=== PATIENT | female | born 1935 | race Caucasian/White ===

== ENCOUNTER 2022-03-05 14:05 | Inpatient (IN) ==
[2022-03-05] MEDS ORDERED: POTASSIUM CHLORIDE 40 MEQ in DEXTROSE 5% IN WATER 500 ML IV PRN (14:08)
[2022-03-05] MEDS ORDERED: ENALAPRILAT 1.25 MG/ML VIAL IV PRN (14:08)
[2022-03-05] MEDS ORDERED: SENNOSIDES 1 TABLET PO PRN (14:08)
[2022-03-05] MEDS ORDERED: POTASSIUM CHLORIDE 20 MEQ TABLET PO PRN ×2 (14:08)
[2022-03-05] MEDS ORDERED: IPRATROPIUM/ALBUTEROL 3 ML AMPUL.NEB NEB PRN ×2 (14:08→18:45)
[2022-03-05] MEDS ORDERED: MAGNESIUM SULFATE 2 GM/50 ML BAG IV PRN (14:08)
[2022-03-05] MEDS ORDERED: POLYETHYLENE GLYCOL 3350 17 GM PACKET PO PRN (14:08)
--- NOTE | 2022-03-05 14:08 | Internal Med History&Physical ---
HPI History of Present Illness Patient information: Note initiated : 03/05/22 at 2:07 pm Service Date, if different from initiated Date: [] Patient: Isabela Cullen a 86 y/o F admitted on for Left hip fracture. Chief Complaint: [] History of present illness: Ms. Cullen is a 86 year old F Presents to the outside facility for left hip pain after fall. Patient states she heard somebody at the door and when she got up to go get the door she tripped over her feet. Gering immediate pain and knew she was unable to get up. Work-up at the outside facility revealed a left hip fracture. Dr. Sarkar was contacted. Patient denies chest pain shortness of breath. Review of Systems: Pertinent positives as above. Denies headache/fever/chills/nausea/vomiting/chest or abdominal pain/cough/dyspnea/diarrhea. Remaining 10 point review system reviewed negative PFSH PFSH All Active Problems Rheumatoid factor positive (Acute) Rotator cuff sprain (Chronic) Leg cramps (Chronic) History of removal of cyst (Chronic) History of bilateral tubal ligation (Chronic) History of surgery (Chronic ~2018) Gluten intolerance (Chronic) Bronchiectasis (Chronic) Swelling (Chronic) Redness (Chronic) Multiple joint pain (Acute) Medical History Bronchiectasis Gluten intolerance Leg cramps Multiple joint pain Hip, shoulder, hand Polymyalgia rheumatica Redness Rheumatoid factor positive Rotator cuff sprain Swelling Surgical History History of bilateral tubal ligation History of removal of cyst Groin area History of surgery (~2018) Skin spot frozen off Family History Other No pertinent family history Social History alcohol intake frequency: 0-2 drinks per day substance use type: does not use MEDS/ALLERGIES Home Medications and Allergies Home Medications Medication Instructions Recorded Confirmed Type prednisone 1 mg tablet 1 mg PO QDAY 09/27/19 11/12/19 History Allergies Allergy/AdvReac Type Severity Reaction Status Date / Time No Known Drug Allergies Allergy Verified 11/12/19 09:58 EXAM Constitutional Exam: General: Alert, Awake, No acute Distress Eyes/N/T: EOMI, PERRL, MM Head/Neck: neck supple, normocephalic atraumatic CV: RRR, No murmurs, normal s1/s2 Pulm: Clear b/l, no wheezing/rhonchi/rales Abd: soft, nontender, +BS x4 Ext: no clubbing/cyanosis/edema Neuro: Alert, no focal deficits, moves all extremities, CN 2-12 grossly intact, sensations intact b/l upper/lower Skin: warm/dry A/P Narrative A/P Narrative: A: *Left hip fracture: *HTN: * P: -Dr. Sarkar for orthopedics -Pain control -PT/OT -check labs -cxr/ua -Continue home ARB -Will medication reconciliation -CM for placement -ppx: SCD and postop per Ortho Time Spent With Patient Time: Total time spent is greater than 50% in coordination of care (as documented) at patient's floor/unit and/or counseling patient: Total time spent with greater than 50% in coordination of care (as documented) at patient's floor/unit and/or counseling patient:: 50 - 70 minutes
--- OUTSIDE RECORDS SUMMARY | 2022-03-05 16:06 | External Medical Summary | CCD ---
:1935 Author Organization [facility] Care Team Providers Name Role Phone Hortencia Mayo Primary Care Provider [phone] Allergies, Adverse Reactions, Alerts Substance Reaction Status No Known Medication Allergies Active Problem List Condition Effective Dates Status Bronchiectasis Active Gluten intolerance Active Polymyalgia rheumatica Active Medications Medication Instructions Start Date End Date Status predniSONE 5 mg oral tablet See Instructions, Instruct ions: Take as directed with prolonged taper, # 100 tab(s), 0 Refill(s), Pharmacy: [facility], Take as directed with prolonged taper 07/27/2019 Ordered Take as directed with prolonged taper predniSONE 1 mg oral tablet See Instructions, Instruct ions: Take as instructed with prolonged taper, # 300 tab(s), 1 Refill(s), Pharmacy: [facility], Take as instructed with prolonged taper 07/27/2019 Ordered Take as instructed with prolonged taper Vital Signs Most recent to oldest [Reference Range]: 1 Temperature Temporal [36.3-37.8 DegC] 36.4 DegC (07/27/2019 09:37:00) Peripheral Pulse Rate [60-100 bpm] 93 bpm (07/27/2019 09:37:00) Respiratory Rate [14-20 br/min] 20 br/min (07/27/2019 09:37:00) Blood Pressure [90-140/60-90 mmHg] <content ID='[id number]'>158</content>/<content ID='[id number]'>95</content> mmHg *HI* (07/27/2019 09:37:00) SpO2 [92-100 %] 93 % (07/27/2019 09:37:00) Most recent to oldest [Reference Range]: 1 Height 162 cm (07/27/2019 09:37:00) Height/Length Measured (inches) 63.78 in (07/27/2019 09:37:00) Weight 50.2 kg (07/27/2019 09:37:00) Weight Measured (lbs) 110.44 lb (07/27/2019 09:37:00) Weight Dosing 50.2 kg (07/27/2019 09:37:00) Body Mass Index 19.13 kg/m2 (07/27/2019 09:37:00) BSA Measured 2 m2 (07/27/2019 09:37:00) Procedures Procedures Date Related Diagnosis Bilateral tubal ligation Cyst In Groin Area Removed Skin spots frozen off 11/02/2017 02:00:00
--- OUTSIDE RECORDS SUMMARY | 2022-03-05 16:06 | External Medical Summary | CCD ---
:1935 Author Organization [facility] Care Team Providers Name Role Phone Hortencia Mayo Primary Care Provider [phone] Ismael Anderson Consulting Provider [phone] Allergies, Adverse Reactions, Alerts Substance Reaction Status No Known Medication Allergies Active Problem List Condition Effective Dates Status Bronchiectasis Active Gluten intolerance Active Polymyalgia rheumatica Active Medications Medication Instructions Start Date End Date Status predniSONE 5 mg oral tablet See Instructions, Instruct ions: Take as directed with prolonged taper, # 100 tab(s), 0 Refill(s), Pharmacy: [facility], Take as directed with prolonged taper 07/27/2019 Ordered Take as directed with prolonged taper predniSONE 1 mg oral tablet See Instructions, Instruct ions: Take as instructed with prolonged taper, # 300 tab(s), 1 Refill(s), Pharmacy: [facility], Take as instructed with prolonged taper 07/27/2019 Ordered Take as instructed with prolonged taper Immunizations Vaccine Date Status Refusal Reason SARS-CoV-2 (COVID-19) mRNA BNT-162b2 vax1 05/14/2020 Record ed SARS-CoV-2 (COVID-19) mRNA BNT-162b2 vax2 04/23/2020 Record ed 1Result Comment: 65+2Result Comment: over 65 Procedures Procedures Date Related Diagnosis Bilateral tubal ligation Skin spots frozen off 11/02/2017 02:00:00 Cyst In Groin Area Removed
--- OUTSIDE RECORDS SUMMARY | 2022-03-05 16:06 | External Medical Summary ---
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, including hip Problem Basal cell C44.310 Active 026779814 carcinoma of skin of unspecified parts of face Problem Skin damage due 692.74 Active to chronic solar radiation Problem Actinic L57.0 Active 072188 keratosis Problem Squamous cell C44.229 Active 836451 000 carcinoma of skin of left ear and external auricular canal Problem Other seborrheic L82.1 Active 254 63825 keratosis ALLERGIES No Known Allergies ENCOUNTERS Encounter Location Date Diagnosis [facility] July, Other se [facility] [place] [address] keratosi s L82.1 and Actinic keratosi s L57.0 [facility] [address] Apr, [address] [place], [place] [id number] [facility] [address] Mar, Ot her seborrheic [address] [place], [place] [id number] keratosi s L82.1 ; Basal cell carcinoma o f skin of unspecified p arts of face C44.310 and Actinic keratosis L57.[address] Mar, 201 [place], [place] [id number] [address] Mar, Other [facility] [place] [facility] [place] [address] keratosi s L82.1 ; Squamous cell ca rcinoma of skin of right lower limb, including hip C44.722 ; Neopla sm of uncertain behavi or of skin D48.5 and A ctinic keratosis L57.[address] Jun, Other [facility] [place] [address] keratosi s L82.1 ; Squamous cell ca rcinoma of skin of left ear and external auricul ar canal C44.229 and Acti renae keratosis L57.[address] Jun, Skin dam age due [place] [address] chronic solar radiation 692.74 ; Seborrh eic Keratosis 702.19 and Actinic keratosi s 702.0 [facility] [address] Jun, Ac tinic keratosis 702.0 [address] [place], [place] [id number] [facility] [address] Jun, Ac tinic keratosis 702.0 [address] [place], [place] [id number] [facility] [address] Jun, Ne oplasm of uncertain [address] [place], [place] [id number] behavior 238.2 [facility] [address] Jun, Ac tinic keratosis 702.0 [address] [place], [place] [id number] and Derm atitis, NOS 692.9 [facility] [address] May, Se borrheic Keratosis [address] [place], [place] [id number] 702.19 a nd Actinic keratosis 702.0 [facility] [address] [facility] May, Ma lignant neoplasm of 201 AILIN Jones [id number] skin of chest 173.5 and Actinic keratosi s 702.0 IMMUNIZATIONS No Known Immunizations SOCIAL HISTORY Never Assessed REASON FOR REFERRAL FUNCTIONAL STATUS PLAN OF CARE Activity Details Follow Up 6 Months Reason: VITAL SIGNS Height 64 in 2011-06-30 Weight 107 lbs 2011-06-30 BMI 18.36 kg/m2 2011-06-30 MEDICATIONS No Known Medications PROCEDURES Procedure Date Ordered Result Body Site BIOPSY OF SKIN LESION June 30, 2011 Post op, no charge Apr 29, 2016 DESTROY LESIONS, 2-May 21, 2009 DESTROY LESIONS, 15 OR MORE July 18, 2013 DESTROY BENIGN/PREMLG LESION May 21, 2009 INTERMED REPAIR FA/EA/EY/NO/LIP/MM <2.5 CM Apr 20, 2016 DESTROY LESIONS, -Apr 20, 2016 DEST MAL LESN TR/EXT 1.1-2.0 CM May 22, 2008 DESTROY LESIONS, 15 OR MORE Mar 24, 2016 DESTRUCTION OF SKIN LESIONS July 02, 2015 DESTROY BENIGN/PREMLG LESION July 02, 2015 DESTROY BENIGN/PREMLG LESION June 26, 2014 BIOPSY OF SKIN LESION Mar 24, 2016 DEST MAL LESN TR/EXT 0.6-1.0 CM Mar 24, 2016 EXC MALIG FA/EA/EY/NO/LIP 0.6-1.0 CM Apr 20, 2016 DESTROY BENIGN/PREMLG LESION July 12, 2012 DESTROY LESIONS, -June 26, 2014 DESTROY BENIGN/PREMLG LESION June 24, 2010 DESTROY LESIONS, 15 OR MORE August 11, 2016 DESTROY BENIGN/PREMLG LESION Apr 20, 2016 DESTROY LESIONS, -July 12, 2012 DESTROY LESIONS, -July 02, 2015 DESTROY LESIONS, 15 OR MORE May 22, 2008 DESTROY LESIONS, -June 24, 2010 RESULTS No Results REASON FOR VISIT skin check , PT WANTS TO MAKE SURE SHE GOT ALL STITCHES OUT , excise bcc midline forehead, Message, SKIN CHECK , SKIN CHECK , SKIN CHECK, SKIN CHECK, skin check , SKIN CHECK , skin check , SKIN CHECK, SKIN CHECK Insurance Providers [facility] Member Patient Patient Patient Patient Patient Subscriber Subscriber Subscriber Group Insurance Plan Plan Plan Plan ID Relationship Address Phone Name Date of ID Name Date of No Type Insurance Insurance Insurance Coverage to Subscriber Address Phone Name Dates [facility] SECURE [address] [facility] SECURE self [place] 19 [id number] [address] [id number] [address] [address] [facility] MED COMP [place] [id number] [place] [id number] MEDICARE [place] [id number] MEDICARE self [place] 1936 [id number] JE [id number] [facility] [address] [facility] Ever [address]87 [facility] Ever self [place] [id number] 11 [id number] [id number] [employer] JOSÉ [facility] EV3 EP6/7 [employer] [facility] [id number]
--- OUTSIDE RECORDS SUMMARY | 2022-03-05 16:06 | External Medical Summary | CCD ---
:1935 Author Organization [facility] Care Team Providers Name Role Phone Hortencia Mayo Primary Care Provider [phone] Ismael Anderson Consulting Provider [phone] Allergies, Adverse Reactions, Alerts Substance Reaction Status No Known Medication Allergies Active Problem List Condition Effective Dates Status Bronchiectasis Active Gluten intolerance Active Polymyalgia rheumatica Active Medications Medication Instructions Start Date End Date Status predniSONE 5 mg oral tablet See Instructions, Instruct ions: Take as directed with prolonged taper, # 100 tab(s), 0 Refill(s), Pharmacy: [facility], Take as directed with prolonged taper 07/27/2019 Ordered Take as directed with prolonged taper predniSONE 1 mg oral tablet See Instructions, Instruct ions: Take as instructed with prolonged taper, # 300 tab(s), 1 Refill(s), Pharmacy: [facility], Take as instructed with prolonged taper 07/27/2019 Ordered Take as instructed with prolonged taper Immunizations Vaccine Date Status Refusal Reason SARS-CoV-2 (COVID-19) mRNA BNT-162b2 vax1 04/23/2020 Record ed 1Result Comment: over 65 Procedures Procedures Date Related Diagnosis Bilateral tubal ligation Cyst In Groin Area Removed Skin spots frozen off 11/02/2017 02:00:00
--- OUTSIDE RECORDS SUMMARY | 2022-03-05 16:06 | External Medical Summary | CCD ---
:1935 Author Organization [facility] Care Team Providers Name Role Phone Hortencia Mayo Primary Care Provider [phone] Ismael Anderson Consulting Provider [phone] Allergies, Adverse Reactions, Alerts Substance Reaction Status No Known Medication Allergies Active Problem List Condition Effective Dates Status Bronchiectasis Active Gluten intolerance Active Polymyalgia rheumatica Active Medications Medication Instructions Start Date End Date Status predniSONE 5 mg oral tablet See Instructions, Instruct ions: Take as directed with prolonged taper, # 100 tab(s), 0 Refill(s), Pharmacy: [facility], Take as directed with prolonged taper 07/27/2019 Ordered Take as directed with prolonged taper predniSONE 1 mg oral tablet See Instructions, Instruct ions: Take as instructed with prolonged taper, # 300 tab(s), 1 Refill(s), Pharmacy: [facility], Take as instructed with prolonged taper [...]
--- OUTSIDE RECORDS SUMMARY | 2022-03-05 16:06 | External Medical Summary | CCD ---
:1935 Author Organization [facility] Care Team Providers Name Role Phone Hortencia Mayo Primary Care Provider [phone] Allergies, Adverse Reactions, Alerts Substance Reaction Status No Known Medication Allergies Active Problem List Condition Effective Dates Status Bronchiectasis Active Gluten intolerance Active Polymyalgia rheumatica Active Medications Medication Instructions Start Date End Date Status losartan 25 mg oral tablet 1 tab(s) ( 25 mg ), PO, 05/26/2020 Ordered Daily, # 30 tab(s), 1 Refill(s), Pharmacy: [facility], 1 tab(s) PO Daily Levaquin 500 mg oral tablet 1 tab(s) ( 500 mg ), PO, 05/26/2020 0 06/05/2020 Ordered q24hr, x 10 day(s), # 10 tab(s), 0 Refill(s), 06/05/20, Pharmacy: [facility], 1 tab(s) PO q24hr,x10 day(s) Immunizations Vaccine Date Status Refusal Reason SARS-CoV-2 (COVID-19) mRNA BNT-162b2 vax1 05/14/2020 Record ed SARS-CoV-2 (COVID-19) mRNA BNT-162b2 vax2 04/23/2020 Record ed 1Result Comment: 65+2Result Comment: over 65 Vital Signs Most recent to oldest [Reference 1 2 Range]: Temperature Temporal [36.3-37.8 36.5 DegC DegC] (05/26/2020 10:52:00) Peripheral Pulse Rate [60-100 86 bpm bpm] (05/26/2020 10:52:00) Blood Pressure [90-140/60-90 <content ID='[id number]'>162</content>/<content ID='[id number]'>93</content> mmHg <content ID='[id number]'>151</desiree nt>/<content ID='[id number]'>89</content> mmHg mmHg] *HI* *HI* (05/26/2020 11:29:00) (05/26/2020 10:52: 00) SpO2 [92-100 %] 97 % (05/26/2020 10:52:00) Most recent to oldest [Reference Range]: 1 2 Height 162 cm (05/26/2020 10:52:00) Height/Length Measured (inches) 63.78 in (05/26/2020 10:52:00) Weight 48.9 kg (05/26/2020 10:52:00) Weight Measured (lbs) 107.58 lb (05/26/2020 10:52:00) Weight Dosing 48.9 kg (05/26/2020 10:52:00) Body Mass Index 18.63 kg/m2 (05/26/2020 10:52:00) BSA Measured 1 m2 (05/26/2020 10:52:00) Procedures Procedures Date Related Diagnosis Bilateral tubal ligation Skin spots frozen off 11/02/2017 02:00:00 Cyst In Groin Area Removed
--- OUTSIDE RECORDS SUMMARY | 2022-03-05 16:06 | External Medical Summary | Continuity of Care Document ---
:1935 Author Organization [facility] Address [address] [place] [address] Care Team Providers Name Role Phone Hortencia Mayo Primary Care Physician Carly Flores Unavailable Unavailable Encounter [facility] Date(s): 06/22/21 - 06/22/21 [facility] [address] [facility] [place] [address]- [place] Discharge Disposition: Home Attending Physician: Hortencia Mayo MD Allergies, Adverse Reactions, Alerts No Known Medication Allergies Immunizations Given and Recorded Vaccine Date Status Refusal Reason SARS-CoV-2 (COVID-19) mRNA-1273 vaccine 06/22/21 Recorded influenza, inactivated 12/26/20 Recorded SARS-CoV-2 (COVID-19) mRNA BNT-162b2 vax 12/26/20 Recorde d SARS-CoV-2 (COVID-19) mRNA BNT-162b2 vax1 05/14/20 Record ed SARS-CoV-2 (COVID-19) mRNA BNT-162b2 vax2 04/23/20 Record ed 1Result Comment: 65+2Result Comment: over 65 Medications losartan 25 mg oral tablet 1 tab(s), PO, Daily, # 30 tab(s), 1 Refill(s), Pharmacy: [facility], TAKE ONE TABLET BYMOUTH DAILY, 48.9, kg, 05/26/20 10:52:00 PST, Weight Dosing Start Date: 01/21/21 Status: Ordered Problem List Condition Effective Dates Status Health Status Informant Bronchiectasis(Confirmed) Active Gluten intolerance(Confirmed) Active Polymyalgia rheumatica(Confirmed) Active Procedures Procedure Date Related Diagnosis Body Site Status Skin spots frozen off 11/02/17 Comple melissa Bilateral tubal ligation Com pleted Cyst In Groin Area Removed C ompleted Social History Social History Type Response Smoking Status Never (less than 100 in life time) entered on: 06/08/19 Sex Care Team PersonnelName: Hortencia Mayo MD Address: [address] [place] [address] [place]: Carly Flores
--- OUTSIDE RECORDS SUMMARY | 2022-03-05 16:06 | External Medical Summary | Continuity of Care Document ---
:1935 Author Organization [facility] Address [address] [place] [address] Care Team Providers Name Role Phone Hortencia Mayo Primary Care Physician Carly Flores Unavailable Unavailable Encounter [facility] Date(s): 01/04/22 - 01/04/22 [facility] [address] [place] [address] [place] Discharge Disposition: Home Attending Physician: DO Cony Reyes Allergies, Adverse Reactions, Alerts No Known Medication Allergies Immunizations Given and Recorded Vaccine Date Status Refusal Reason influenza, inactivated 01/04/22 Recorded influenza, inactivated 12/26/20 Recorded SARS-COV-2 mRNA-1273 bivalent booster 01/04/22 Recorded SARS-CoV-2 (COVID-19) mRNA-1273 vaccine 06/22/21 Recorded SARS-CoV-2 (COVID-19) mRNA BNT-162b2 vax 12/26/20 Recorde d SARS-CoV-2 (COVID-19) mRNA BNT-162b2 vax1 05/14/20 Record ed SARS-CoV-2 (COVID-19) mRNA BNT-162b2 vax2 04/23/20 Record ed 1Result Comment: 65+2Result Comment: over 65 Medications losartan 25 mg oral tablet 1 tab(s), PO, Daily, # 30 tab(s), 1 Refill(s), Pharmacy: [facility], TAKE ONE TABLET BYMOUTH DAILY, 48.9, kg, 05/26/20 10:52:00 PST, Weight Dosing Start Date: 01/21/21 Status: Ordered Problem List Condition Confirmation Course Effective Dates Status Health I nformant Status Bronchiectasis Confirmed Active Gluten intolerance Confirmed Active Polymyalgia Confirmed Active rheumatica Procedures Procedure Date Related Diagnosis Body Site Status Skin spots frozen off 11/02/17 Comple melissa Bilateral tubal ligation Com pleted Cyst In Groin Area Removed C ompleted Social History Social History Type Response Smoking Status Never (less than 100 in life time) entered on: 06/08/19 Sex Patient Care team information PersonnelName: MD Hortencia Mayo Address: Address: [address] [place] [address], [place] [address] [place] Name: Carly Flores
--- NOTE | 2022-03-05 17:32 | XRay Report ---
CLINICAL INFORMATION: Preop COMPARISON: 05/10/2017 TECHNIQUE: Portable FINDINGS: The heart size, mediastinum and pulmonary vessels are unremarkable. Small wedge-shaped region of fibrosis with bronchiectasis, in the right middle lobe, is unchanged 2018. COPD changes also stable. No infiltrates or new pulmonary abnormalities. No effusions. 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 No acute disease Interpreted and Authenticated by: Reagan Vega 03/05/22
[2022-03-05] MEDS ORDERED: ceFAZolin 2 GM in DEXTROSE 5% IN WATER 50 ML IV SCH ×2 (17:45→19:00)
[2022-03-05] MEDS ORDERED: ONDANSETRON 4 MG/2 ML VIAL ONE (17:57)
[2022-03-05] MEDS ORDERED: ePHEDrine 50 MG/5 ML SYRINGE (ANEST) IV ONE (17:57)
[2022-03-05] MEDS ORDERED: MAGNESIUM SULFATE 2 GM/50 ML BAG IV ONE (17:57)
[2022-03-05] MEDS ORDERED: TRANEXAMIC ACID 1,000 MG/10 ML VIAL ONE (17:57)
[2022-03-05] MEDS ORDERED: ACETAMINOPHEN 1,000 MG/100 ML BAG IV ONE ×2 (18:45→19:20)
[2022-03-05] MEDS ORDERED: LACTATED RINGERS 1,000 ML IV SCH (18:45)
[2022-03-05] MEDS ORDERED: NALOXONE HCL 0.4 MG/ML VIAL IV PRN (18:45)
[2022-03-05] MEDS ORDERED: fentaNYL 100 MCG/2 ML VIAL IV PRN (18:45)
[2022-03-05] MEDS ORDERED: BISACODYL 10 MG SUPP.RECT PR PRN (18:50)
--- NOTE | 2022-03-05 18:50 | Brief Operative Note ---
Brief Operative Note Date of procedure: 03/05/22 Pre-op diagnosis: Left closed intertrochanteric hip fracture Post-op diagnosis: same Procedure: Left open treatment internal fixation of intertrochanteric hip fracture w synthes TFNA Grafts/Implants: Yes (Synthes midlength 125 deg TFNA, 95 lag screw) Anesthesia: spinal Findings: comminuted intertroch fracture Complications: none Surgeon: Ernesto Sarkar Diplomatic Officer: Nigel Mclaughlin Estimated blood loss (cc): 150 Specimens Removed/Pathology: none sent Condition: stable Disposition: PACU
--- NOTE | 2022-03-05 19:54 | History and Physical Report ---
DATE OF ADMISSION: 03/05/2022 CHIEF COMPLAINT: Left hip pain. HISTORY: This is an 86-year-old female who lives alone, recently about a week ago, who heard somebody at the door and she got up to see who it was and tripped, had fallen down, and had severe pain in her left hip. She is unable to bear weight. She was taken to the local emergency room in [facility]. X-rays were taken, which showed a comminuted intratrochanteric hip fracture. She was transferred down here for definitive orthopedic care. She denies any loss of consciousness or other injuries. PAST MEDICAL HISTORY: Reportedly for hypertension, although she states currently she does not have hypertension. Also history of TIAs and polymyalgia rheumatica. PAST SURGICAL HISTORY: Tubal ligation and cyst removal. MEDICATIONS: ____ prescription medications at this time. ALLERGIES: No known drug allergies. SOCIAL HISTORY: She drinks limited alcohol. No tobacco use. Again she is recently . PHYSICAL EXAMINATION: VITAL SIGNS: Today at presentation her blood pressure is 156/88, pulse 93, respirations 16, and temperature 97.5. GENERAL APPEARANCE: She appears her stated age, in no acute distress. She is oriented to person and place. Mood is somewhat depressed, almost tearful. HEART: Regular. LUNGS: Clear. EXTREMITIES: Left lower extremities reveals significant shortening in external rotation. Skin is intact as she has very limited motion secondary to severe pain. Fractures is grossly unstable. NEUROLOGIC: She is neurovascularly intact distally. DIAGNOSTIC STUDIES: X-rays reviewed from [facility] shows a comminuted left intratrochanteric hip fracture that appears to start to extend into the upper subtrochanteric region. IMPRESSION: Left closed intratrochanteric hip fracture in an 86-year-old female, who is previously ambulatory and independent. PLAN: I recommend proceeding with open treatment and internal fixation of the left intertrochanteric hip fracture. Risks of surgery discussed include, but not limited to bleeding; infection; injuring nerves, blood vessels or other surrounding structures; anesthetic risks; nonunion and malunion of fracture; failure of hardware or fixation; possibility of needing further surgery, she understood and wished to proceed. She has been n.p.o. since 09:30 this morning, so we are going to proceed right away. [email or web address]:[id number] Job ID: [id number] Doc ID: [id number] Ernesto Sarkar MD
[2022-03-05] MEDS: DOCUSATE SODIUM 100 MG CAPSULE PO SCH (22:14)
[2022-03-05] MEDS: 0.9 % SODIUM CHLORIDE 10 ML SYRINGE IV SCH (22:14)
[2022-03-06] MEDS: ceFAZolin 1 GM VIAL IV SCH ×2 (01:28→10:48)
[2022-03-06] MEDS: 0.9 % SODIUM CHLORIDE 10 ML SYRINGE IV SCH ×4 (04:46→21:06)
[2022-03-06 05:01] LABS: Appearance,Urine HAZY (Clear); Bilirubin,Urine Negative (Negative); Color,Urine YELLOW; Culture Indicated,Urine No; Glucose,Urine (UA) >=500 mg/dL (Negative); Ketones,Urine Negative (Negative); Leukocyte Esterase,Urine Negative /uL (Negative); Mucus,Urine MOD /hpf; Nitrate,Urine Negative (Negative); Protein,Urine Negative (Negative); Specific Gravity,Urine 1.021 (1.000-1.035); Urine Blood 0.03 mg/dL (Negative); Urine Hyaline Cast 104 /lph (0-2); Urine RBC 4 /hpf (0-3); Urine Squamous Epithelial Cell < 1 /hpf (0-4); Urine Transitional Epi Cells < 1 /hpf (0-2); Urine WBC 2 /hpf (0-4); Urobilinogen,Urine Negative
--- NOTE | 2022-03-06 06:26 | XRay Report ---
CLINICAL INFORMATION: ORIF subtrochanteric fracture left hip COMPARISON: None. FINDINGS: A digital images from the OR show comminuted oblique subtrochanteric fracture reduced to anatomic alignment transfixed by gamma nail and screw. Total fluoroscopy time 0.5 minutes IMPRESSION: ORIF proximal diaphyseal femoral fracture in anatomic alignment. Total fluoroscopy time 0.5 minutes Interpreted and Authenticated by: Reagan Vega 03/06/22
--- NOTE | 2022-03-06 07:42 | Internal Med Progress Note ---
SUBJECTIVE Subjective Patient information: Note initiated : 03/06/22 at 7:38 am Service Date, if different from initiated Date: [] Patient: Isabela Cullen a 86 y/o F admitted on 03/05/22 for Left hip fracture. Chief Complaint: [] Interval history: History of present illness: Ms. Cullen is a 86 year old F Presents to the outside facility for left hip pain after fall. Patient states she heard somebody at the door and when she got up to go get the door she tripped over her feet. [place] immediate pain and knew she was unable to get up. Work-up at the outside facility revealed a left hip fracture. Dr. Sarkar was contacted. Patient denies chest pain shortness of breath. 03/06 Status post ORIF. Patient feeling okay. No overnight or new complaints other than poor sleep. Leukocytosis likely reactive. Afebrile. Monitor. Mild hyponatremia monitor. Review of Systems: denies headache/fever/chills/nausea/vomiting/chest or abdominal p ain/cough/dyspnea/diarrhea. Otherwise see above. Constitutional Vitals: Vital Signs Temp Pulse Resp BP Pulse Ox O2 Del Method O2 Flow Rate 98.9 F 83 16 128/73 92 2 03/06/22 04:43 03/06/22 04:43 03/06/22 04:43 03/06/22 04:43 03/06/22 04:43 03/06/22 04:43 03/06/22 04:43 Period Temp Pulse Resp BP Sys/Contreras Pulse Ox O2 Del Method O2 Flow Rate Last 24 Hr 97.2 F-98.9 F 50-99 14-25 93-156/62-88 90-98 Nasal Cannula- Nasal Cannula 1-2 Intake and Output 03/05/22 03/06/22 03/06/22 19:59 03:59 11:59 Intake Total 500 100 840 Output Total 360 Balance 500 100 480 Weight 43.091 kg 45.444 kg Intake & Output: Intake & Output 03/05/22 03/06/22 03/06/22 19:59 03:59 11:59 Intake Total 500 100 840 Output Total 360 Balance 500 100 480 Weight 43.091 kg 45.444 kg Intake: IV 50 100 Ancef 2 gm In Dextrose 5% in 50 Water 50 ml @ 100 mls/hr IV PREOP MICHEL Rx#:[id number] Oral 840 IV - Manual Only 450 Output: Urine Catheter Amount 360 Other: Urine Appearance Uretheral (Howard) Cloudy Clear Urine Color Uretheral (Howard) Yellow Yellow Exam: General: Alert, Awake, No acute Distress Eyes/N/T: EOMI, Head/Neck: neck supple, CV: RRR, No murmurs, Pulm: mild rales b/l, no wheezing Abd: soft, nontender, +BS x4 Ext: no clubbing/cyanosis/edema Neuro: Alert, no focal deficits, moves all extremities, Skin: warm/dry OBJ DATA Labs CBC & Chem 7: 03/06/22 06:06 03/06/22 06:08 Labs: Abnormal Lab Results 03/06/22 01:43 Urine Appearance Hazy A Urine Glucose (UA) >=500 A Urine RBC 4 H Hyaline Casts 104 H Urine Mucus Mod A Meds: Medications Acetaminophen (Acetaminophen 325 Mg Tablet) 650 mg PO Q6HP PRN; Protocol PRN Reason: Per Pain Protocol/Fever > 101 Hydrocodone Bitart/Acetaminophen (Hydrocodone/Apap 5/325mg Tablet) 1 tab PO Q4HP PRN PRN Reason: PAIN LEVEL 3-6 Albuterol/Ipratropium (Ipratropium/Albuterol 3 Ml Ampul.Neb) 3 ml NEB Q4HP PRN PRN Reason: Shortness Of Breath Bisacodyl (Bisacodyl 10 Mg Supp.Rect) 10 mg ND Q2-3DAYS PRN PRN Reason: Constipation Cefazolin Sodium (Cefazolin 1 Gm Vial) 2 gm IV Q8H [facility] Stop: 03/06/22 10:01 Last Admin: 03/06/22 01:28 Dose: 2 gm Docusate Sodium (Docusate Sodium 100 Mg Capsule) 100 mg PO BID [facility] Last Admin: 03/05/22 22:14 Dose: 100 mg Enalaprilat (Enalaprilat 1.25 Mg/Ml Vial) 0 mg IV Q2HP PRN PRN Reason: Hypertension Heparin Sodium (Porcine) (Heparin 5,000 Unit/Ml Vial) 5,000 unit SQ Q12 [facility] Potassium Chloride 40 meq/ (Dextrose) 520 mls @ 130 mls/hr IV UD PRN PRN Reason: Potassium < 3 Magnesium Sulfate (Magnesium Sulfate) 2 gm in 50 mls @ 50 mls/hr IV UD PRN PRN Reason: Magnesium </= 1.6 Morphine Sulfate (Morphine 4 Mg/Ml Vial) 0 mg IV Q3HP PRN PRN Reason: Pain Ondansetron HCl (Ondansetron 4 Mg/2 Ml Vial) 4 mg IV Q4HP PRN PRN Reason: Nausea And Vomiting Polyethylene Glycol (Polyethylene Glycol 3350 17 Gm Packet) 17 gm PO DAILYP PRN PRN Reason: Constipation Potassium Chloride (Potassium Chloride 20 Meq Tablet) 40 meq PO UD PRN PRN Reason: Potssium is 3-3.5 Potassium Chloride (Potassium Chloride 20 Meq Tablet) 40 meq PO UD PRN PRN Reason: Potassium < 3 Senna (Sennosides 1 Tablet) 2 tab PO DAILYP PRN PRN Reason: Constipation Sodium Chloride (0.9 % Sodium Chloride 10 Ml Syringe) 10 ml IV Q8 [facility] Last Admin: 03/06/22 04:46 Dose: 10 ml A/P Narrative A/P Narrative: A: *Left hip fracture: s/p ORIF (03/05) *HTN: *COPD: based on history and imaging *leukocytosis: ?reactive, monitor *Hyponatremia: *hypoxia: obtain cxr P: -Dr. Sarkar for orthopedics -Pain control -PT/OT -f/u check labs -ivf f/u sodium -f/u cbc -Continue home ARB -Home medication reconciliation -CM for placement -ppx: SCD and postop per Ortho heparin DNR Time Spent With Patient Time: Total time spent is greater than 50% in coordination of care (as documented) at patient's floor/unit and/or counseling patient: Total time spent with greater than 50% in coordination of care (as documented) at patient's floor/unit and/or counseling patient:: 35 - 50 minutes QUALITY VTE Deep Vein Thrombosis/Pulmonary Embolism Present on Admission: No
[2022-03-06 07:44] LABS: Basophils # (Auto) 0.03 K/mcL (0.00-0.30); Basophils % (Auto) 0.2 % (0.0-2.0); Eosinophils # (Auto) 0 K/mcL (0.00-0.70); Eosinophils % (Auto) 0 % (0.0-7.0); Hematocrit 33.8 % (34.1-44.9); Hemoglobin 11.1 g/dL (11.2-15.7); Lymphocytes % (Auto) 5.9 % (15.5-49.0); Mean Cell Volume 90.1 fL (80.0-100.0); Mean Corpuscular HGB Conc 32.8 g/dL (31.0-36.0); Mean Platelet Volume 9.2 fL (8.8-12.5); Monocytes # (Auto) 0.97 K/mcL (0.10-0.90); Monocytes % (Auto) 5.2 % (1.0-12.0); Neutrophils % (Auto) 88.2 % (38.0-78.0); Platelet Count 197 K/mcL (140-440); RBC 3.75 M/mcL (3.59-5.38); Red Cell Distribution Width 13.6 % (11.5-14.5); WBC 18.8 K/mcL (4.5-11.0)
[2022-03-06 07:53] LABS: INR 1.1 (0.9-1.1); Prothrombin Time 14.7 sec (11.9-14.5)
[2022-03-06 08:09] LABS: ALT/SGPT 14 U/L (<40); AST/SGOT 24 U/L (<32); Albumin 3.5 gm/dL (3.2-5.2); Albumin/Globulin Ratio 1.6 (1.0-2.3); Alkaline Phosphatase 76 U/L (39-117); Bilirubin,Direct < 0.2 mg/dL (0-0.3); Bilirubin,Total 0.3 mg/dL (0.1-1.0); Blood Urea Nitrogen 17 mg/dL (8-23); Calcium 8.7 mg/dL (8.6-10.4); Carbon Dioxide 30 mmol/L (22-30); Chloride 96 mmol/L (96-108); Globulin 2.2 gm/dL (2.2-3.7); Glomerular Filtration Rate 67; Glucose 179 mg/dL (70-105); Lactate Dehydrogenase 242 U/L (135-225); Phosphorous 3.3 mg/dL (2.5-4.5); Triglycerides 49 mg/dL (<150); Uric Acid 3.8 mg/dL (2.5-8.0)
[2022-03-06] MEDS ORDERED: 0.9 % SODIUM CHLORIDE 500 ML IV ONE (08:46)
[2022-03-06] MEDS: DOCUSATE SODIUM 100 MG CAPSULE PO SCH ×2 (08:59→19:42)
[2022-03-06] MEDS: ACETAMINOPHEN 325 MG TABLET PO PRN ×2 (08:59→16:36)
[2022-03-06] MEDS ORDERED: diphenhydrAMINE 25 MG CAPSULE PO PRN (09:16)
--- NOTE | 2022-03-06 10:08 | Orthopedic Progress Note ---
SUBJECTIVE Subjective Patient information: Note initiated : 03/06/22 at 10:04 am Service Date, if different from initiated Date: [] Patient: Isabela Cullen 86 y/o F admitted on 03/05/22 for Left hip fracture. Chief Complaint: Mild pain. Principal diagnosis: L hip IT fx Constitutional Vitals: Vital Signs Temp Pulse Resp BP Pulse Ox O2 Del Method O2 Flow Rate 98.1 F 83 20 119/70 91 2 03/06/22 07:49 03/06/22 04:43 03/06/22 07:49 03/06/22 07:49 03/06/22 07:49 03/06/22 07:49 03/06/22 07:49 Period Temp Pulse Resp BP Sys/Contreras Pulse Ox O2 Del Method O2 Flow Rate Last 24 Hr 97.2 F-98.9 F 50-99 14-25 93-156/62-88 90-98 Nasal Cannula- Nasal Cannula 1-2 Intake and Output 03/05/22 03/06/22 03/06/22 19:59 03:59 11:59 Intake Total 497 063 0859 Output Total 360 Balance 500 100 960 Weight 95 lb 100 lb 3 oz Intake & Output: Intake & Output 03/05/22 03/06/22 03/06/22 19:59 03:59 11:59 Intake Total 488 133 5804 Output Total 360 Balance 500 100 960 Weight 95 lb 100 lb 3 oz Intake: IV 50 100 Ancef 2 gm In Dextrose 5% in 50 Water 50 ml @ 100 mls/hr IV PREOP MICHEL Rx#:[id number] Oral 1320 IV - Manual Only 450 Output: Urine Catheter Amount 360 Other: Meal Breakfast Percent of Meal Consumed 100% Feeding Ability Independent Urine Appearance Uretheral (Howard) Cloudy Clear Urine Color Uretheral (Howard) Yellow Yellow Additional findings Additional findings: Bandages c/d/i NVI-distal OBJ DATA Labs CBC & Chem 7: 03/06/22 06:06 03/06/22 06:08 Labs: Abnormal Lab Results 03/06/22 03/06/22 03/06/22 06:08 06:06 06:03 WBC 18.8 H Hgb 11.1 L Hct 33.8 L Neut % (Auto) 88.2 H Lymph % (Auto) 5.9 L Lymph # (Auto) 1.10 L Edgar # (Auto) 0.97 H Immature Gran # 0.10 H Absolute Neutrophils 16.56 H PT 14.7 H Sodium 132 L Anion Gap 6.0 L Glucose 179 H Lactate Dehydrogenase 242 H Total Protein 5.7 L Urine Appearance Urine Glucose (UA) Urine RBC Hyaline Casts Urine Mucus 03/06/22 01:43 WBC Hgb Hct Neut % (Auto) Lymph % (Auto) Lymph # (Auto) Edgar # (Auto) Immature Gran # Absolute Neutrophils PT Sodium Anion Gap Glucose Lactate Dehydrogenase Total Protein Urine Appearance Hazy A Urine Glucose (UA) >=500 A Urine RBC 4 H Hyaline Casts 104 H Urine Mucus Mod A Meds: Medications Acetaminophen (Acetaminophen 325 Mg Tablet) 650 mg PO Q6HP PRN; Protocol PRN Reason: Per Pain Protocol/Fever > 101 Last Admin: 03/06/22 08:59 Dose: 650 mg Hydrocodone Bitart/Acetaminophen (Hydrocodone/Apap 5/325mg Tablet) 1 tab PO Q4HP PRN PRN Reason: PAIN LEVEL 3-6 Albuterol/Ipratropium (Ipratropium/Albuterol 3 Ml Ampul.Neb) 3 ml NEB Q4HP PRN PRN Reason: Shortness Of Breath Bisacodyl (Bisacodyl 10 Mg Supp.Rect) 10 mg CA Q2-3DAYS PRN PRN Reason: Constipation Diphenhydramine HCl (Diphenhydramine 25 Mg Capsule) 25 mg PO HSP PRN PRN Reason: Insomnia Docusate Sodium (Docusate Sodium 100 Mg Capsule) 100 mg PO BID MICHEL Last Admin: 03/06/22 08:59 Dose: 100 mg Enalaprilat (Enalaprilat 1.25 Mg/Ml Vial) 0 mg IV Q2HP PRN PRN Reason: Hypertension Heparin Sodium (Porcine) (Heparin 5,000 Unit/Ml Vial) 5,000 unit SQ Q12 [facility] Potassium Chloride 40 meq/ (Dextrose) 520 mls @ 130 mls/hr IV UD PRN PRN Reason: Potassium < 3 Magnesium Sulfate (Magnesium Sulfate) 2 gm in 50 mls @ 50 mls/hr IV UD PRN PRN Reason: Magnesium </= 1.6 Sodium Chloride (Sodium Chloride 0.9%) 500 mls @ 60 mls/hr IV .Q8H20M ONE Stop: 03/06/22 17:05 Melatonin (Melatonin 3 Mg Tablet) 3 mg PO QHS [facility] Morphine Sulfate (Morphine 4 Mg/Ml Vial) 0 mg IV Q3HP PRN PRN Reason: Pain Ondansetron HCl (Ondansetron 4 Mg/2 Ml Vial) 4 mg IV Q4HP PRN PRN Reason: Nausea And Vomiting Polyethylene Glycol (Polyethylene Glycol 3350 17 Gm Packet) 17 gm PO DAILYP PRN PRN Reason: Constipation Potassium Chloride (Potassium Chloride 20 Meq Tablet) 40 meq PO UD PRN PRN Reason: Potssium is 3-3.5 Potassium Chloride (Potassium Chloride 20 Meq Tablet) 40 meq PO UD PRN PRN Reason: Potassium < 3 Senna (Sennosides 1 Tablet) 2 tab PO DAILYP PRN PRN Reason: Constipation Sodium Chloride (0.9 % Sodium Chloride 10 Ml Syringe) 10 ml IV Q8 [facility] Last Admin: 03/06/22 04:46 Dose: 10 ml A/P Assessment and plan (1) Hip fracture, intertrochanteric: Assessment and plan: 1 days s/p L hip IT fx with IM nail-stable mobilize with PT f/u at [facility] in 6 weeks. [place] out in 2 weeks with PCP or at rehab facility. Status: Acute Time Spent With Patient Time: Total time spent is greater than 50% in coordination of care (as documented) at patient's floor/unit and/or counseling patient: Total time spent with greater than 50% in coordination of care (as documented) at patient's floor/unit and/or counseling patient:: less than 15 minutes
--- NOTE | 2022-03-06 10:49 | XRay Report ---
CLINICAL INFORMATION: Hypoxia COMPARISON: 05/10/2017 and 03/05/2022 TECHNIQUE: Portable FINDINGS: The heart size, mediastinum and pulmonary vessels are unremarkable. Small wedge-shaped region of fibrosis with bronchiectasis, in the right middle lobe, is unchanged since 2018. COPD changes also stable. No infiltrates or new pulmonary abnormalities. No effusions. 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 No acute disease Interpreted and Authenticated by: Reagan Vega 03/06/22
[2022-03-06] MEDS: HYDROcodone/APAP 5/325MG TABLET PO PRN (19:41)
[2022-03-06] MEDS: HEPARIN 5,000 UNIT/ML VIAL SQ SCH (19:42)
[2022-03-06] MEDS: MELATONIN 3 MG TABLET PO SCH (19:42)
[2022-03-07] MEDS: 0.9 % SODIUM CHLORIDE 10 ML SYRINGE IV SCH ×3 (05:06→20:59)
[2022-03-07 06:50] LABS: Hemoglobin 10.3 g/dL (11.2-15.7); Mean Cell Volume 90.1 fL (80.0-100.0); Mean Corpuscular HGB Conc 33.2 g/dL (31.0-36.0); Mean Platelet Volume 9.4 fL (8.8-12.5); Platelet Count 155 K/mcL (140-440); RBC 3.44 M/mcL (3.59-5.38); Red Cell Distribution Width 13.9 % (11.5-14.5); WBC 14.7 K/mcL (4.5-11.0)
[2022-03-07 07:18] LABS: Blood Urea Nitrogen 24 mg/dL (8-23); Carbon Dioxide 31 mmol/L (22-30); Chloride 90 mmol/L (96-108); Glomerular Filtration Rate 83; Glucose 91 mg/dL (70-105)
[2022-03-07 07:45] LABS: Band Neutrophils % 2 % (0-10); Lymphocytes % 12 % (15-49); Monocytes % (Manual) 5 % (1-12); Platelet Estimate NORMAL (Normal); RBC Morphology NORMAL (Normal); Segmented Neutrophils % 81 % (38-78)
--- NOTE | 2022-03-07 07:51 | Internal Med Progress Note ---
SUBJECTIVE Subjective Patient information: Note initiated : 03/07/22 at 7:45 am Service Date, if different from initiated Date: [] Patient: Isabela Cullen a 86 y/o F admitted on 03/05/22 for Left hip fracture. Chief Complaint: [] Principal diagnosis: L hip IT fx Interval history: History of present illness: Ms. Cullen is a 86 year old F Presents to the outside facility for left hip pain after fall. Patient states she heard somebody at the door and when she got up to go get the door she tripped over her feet. [place] immediate pain and knew she was unable to get up. Work-up at the outside facility revealed a left hip fracture. Dr. Sarkar was contacted. Patient denies chest pain shortness of breath. 03/06 Status post ORIF. Patient feeling okay. No overnight or new complaints other than poor sleep. Leukocytosis likely reactive. Afebrile. Monitor. Mild hyponatremia monitor. 03/07 Patient comfortable this morning. No overnight events. Leukocytosis present but improving. no Bandemia. Sodium decreased. Awaiting urine studies. Review of Systems: denies headache/fever/chills/nausea/vomiting/chest or abdominal pain/cough/dyspnea/diarrhea. Otherwise see above. Constitutional Vitals: Vital Signs Temp Pulse Resp BP Pulse Ox O2 Del Method O2 Flow Rate 97.7 F 82 16 139/79 91 0.5 03/07/22 03:21 03/07/22 03:21 03/07/22 03:21 03/07/22 03:21 03/07/22 06:05 03/07/22 06:05 03/07/22 06:02 Period Temp Pulse Resp BP Sys/Contreras Pulse Ox O2 Del Method O2 Flow Rate Last 24 Hr 97 F-98.8 F 82-85 16-20 118-160/65-85 91-98 Nasal Cannula-Room Air 0.5-3 Intake and Output 03/06/22 03/07/22 03/07/22 19:59 03:59 11:59 Intake Total 1017 400 Output Total 225 450 Balance 792 -50 Weight 43.715 kg Intake & Output: Intake & Output 03/06/22 03/07/22 03/07/22 19:59 03:59 11:59 Intake Total 1017 400 Output Total 225 450 Balance 792 -50 Weight 43.715 kg Intake: IV 317 Sodium Chloride 0.9% 500 ml @ 317 60 mls/hr IV .Q8H20M ONE Rx#: [id number] Oral 700 400 Output: Urine Catheter Amount 225 Void Amount 450 Other: Urine Appearance Clear Clear Uretheral (Howard) Clear Urine Color Yellow Dark Yazmin Uretheral (Howard) Yellow Urine Odor Strong Strong Exam: General: Alert, Awake, No acute Distress Eyes/N/T: EOMI, Head/Neck: neck supple, CV: RRR, No murmurs, Pulm: mild rales b/l, no wheezing Abd: soft, nontender, +BS x4 Ext: no clubbing/cyanosis/edema Neuro: Alert, no focal deficits, moves all extremities, Skin: warm/dry OBJ DATA Labs CBC & Chem 7: 03/07/22 05:38 03/07/22 05:38 Labs: Abnormal Lab Results 03/07/22 03/07/22 03/06/22 05:38 05:38 06:08 WBC 14.7 H RBC 3.44 L Hgb 10.3 L Hct 31.0 L Neut % (Auto) Lymph % (Auto) Lymph # (Auto) Carter # (Auto) Immature Gran # Absolute Neutrophils PT Sodium 126 L 132 L Chloride 90 L Carbon Dioxide 31 H Anion Gap 5.0 L 6.0 L BUN 24 H Glucose 179 H Calcium 8.0 L Lactate Dehydrogenase 242 H Total Protein 5.7 L Urine Appearance Urine Glucose (UA) Urine RBC Hyaline Casts Urine Mucus 03/06/22 03/06/22 03/06/22 06:06 06:03 01:43 WBC 18.8 H RBC Hgb 11.1 L Hct 33.8 L Neut % (Auto) 88.2 H Lymph % (Auto) 5.9 L Lymph # (Auto) 1.10 L Carter # (Auto) 0.97 H Immature Gran # 0.10 H Absolute Neutrophils 16.56 H PT 14.7 H Sodium Chloride Carbon Dioxide Anion Gap BUN Glucose Calcium Lactate Dehydrogenase Total Protein Urine Appearance Hazy A Urine Glucose (UA) >=500 A Urine RBC 4 H Hyaline Casts 104 H Urine Mucus Mod A Meds: Medications Acetaminophen (Acetaminophen 325 Mg Tablet) 650 mg PO Q6HP PRN; Protocol PRN Reason: Per Pain Protocol/Fever > 101 Last Admin: 03/06/22 16:36 Dose: 650 mg Hydrocodone Bitart/Acetaminophen (Hydrocodone/Apap 5/325mg Tablet) 1 tab PO Q4HP PRN PRN Reason: PAIN LEVEL 3-6 Last Admin: 03/06/22 19:41 Dose: 1 tab Albuterol/Ipratropium (Ipratropium/Albuterol 3 Ml Ampul.Neb) 3 ml NEB Q4HP PRN PRN Reason: Shortness Of Breath Bisacodyl (Bisacodyl 10 Mg Supp.Rect) 10 mg DE Q2-3DAYS PRN PRN Reason: Constipation Diphenhydramine HCl (Diphenhydramine 25 Mg Capsule) 25 mg PO HSP PRN PRN Reason: Insomnia Docusate Sodium (Docusate Sodium 100 Mg Capsule) 100 mg PO BID [facility] Last Admin: 03/06/22 19:42 Dose: 100 mg Enalaprilat (Enalaprilat 1.25 Mg/Ml Vial) 0 mg IV Q2HP PRN PRN Reason: Hypertension Heparin Sodium (Porcine) (Heparin 5,000 Unit/Ml Vial) 5,000 unit SQ Q12 [facility] Last Admin: 03/06/22 19:42 Dose: 5,000 unit Potassium Chloride 40 meq/ (Dextrose) 520 mls @ 130 mls/hr IV UD PRN PRN Reason: Potassium < 3 Magnesium Sulfate (Magnesium Sulfate) 2 gm in 50 mls @ 50 mls/hr IV UD PRN PRN Reason: Magnesium </= 1.6 Melatonin (Melatonin 3 Mg Tablet) 3 mg PO QHS [facility] Last Admin: 03/06/22 19:42 Dose: 3 mg Morphine Sulfate (Morphine 4 Mg/Ml Vial) 0 mg IV Q3HP PRN PRN Reason: Pain Ondansetron HCl (Ondansetron 4 Mg/2 Ml Vial) 4 mg IV Q4HP PRN PRN Reason: Nausea And Vomiting Polyethylene Glycol (Polyethylene Glycol 3350 17 Gm Packet) 17 gm PO DAILYP PRN PRN Reason: Constipation Potassium Chloride (Potassium Chloride 20 Meq Tablet) 40 meq PO UD PRN PRN Reason: Potssium is 3-3.5 Potassium Chloride (Potassium Chloride 20 Meq Tablet) 40 meq PO UD PRN PRN Reason: Potassium < 3 Senna (Sennosides 1 Tablet) 2 tab PO DAILYP PRN PRN Reason: Constipation Sodium Chloride (0.9 % Sodium Chloride 10 Ml Syringe) 10 ml IV Q8 [facility] Last Admin: 03/07/22 05:06 Dose: 10 ml A/P Narrative A/P Narrative: A: *Left hip fracture: s/p ORIF (03/05) *HTN: *COPD: based on history and imaging *leukocytosis: likely reactive, improving, monitor.no bandemia, ua/cxr unremarkable, afebrile *Hyponatremia: worse, *Anemia: *Acute hypoxic respiratory failure: 0-1L NC 2/2 likely atelectasis + bronchiectasis plus underlying copd P: -Dr. Sarkar for orthopedics -Pain control -PT/OT -f/u cbc/chem -f/u sodium, urine studies -f/u cbc -IS/Acapella, wean off o2 -Continue home ARB -Home medication reconciliation -CM for placement -ppx: SCD and postop per Ortho heparin DNR Plan of Treatment: mobilize with PT Switch pain med to Tramadol from [place]. f/u at [facility] in 2 or 6 weeks. Pt does not wish to travel for 2 week appt. [place] out at 2 weeks with PCP or nursing facility. 50% weight bearing. Signing out Ortho service. Time Spent With Patient Time: Total time spent is greater than 50% in coordination of care (as documented) at patient's floor/unit and/or counseling patient: Total time spent with greater than 50% in coordination of care (as documented) at patient's floor/unit and/or counseling patient:: 35 - 50 minutes QUALITY VTE Deep Vein Thrombosis/Pulmonary Embolism Present on Admission: No
[2022-03-07] MEDS: DOCUSATE SODIUM 100 MG CAPSULE PO SCH ×2 (08:13→20:57)
[2022-03-07] MEDS: HEPARIN 5,000 UNIT/ML VIAL SQ SCH ×2 (08:13→20:58)
[2022-03-07] MEDS: ACETAMINOPHEN 325 MG TABLET PO PRN (08:13)
[2022-03-07 08:18] LABS: Uric Acid 3.4 mg/dL (2.5-8.0)
--- NOTE | 2022-03-07 09:24 | Orthopedic Progress Note ---
SUBJECTIVE Subjective Patient information: Note initiated : 03/07/22 at 9:21 am Service Date, if different from initiated Date: [] Patient: Isabela Cullen 86 y/o F admitted on 03/05/22 for Left hip fracture. Chief Complaint: Mild to moderate pain, particularly with movement. Principal diagnosis: L hip IT fx Constitutional Vitals: Vital Signs Temp Pulse Resp BP Pulse Ox O2 Del Method O2 Flow Rate 97.7 F 82 16 139/79 91 0.5 03/07/22 03:21 03/07/22 03:21 03/07/22 03:21 03/07/22 03:21 03/07/22 06:05 03/07/22 06:05 03/07/22 06:02 Period Temp Pulse Resp BP Sys/Contreras Pulse Ox O2 Del Method O2 Flow Rate Last 24 Hr 97 F-98.8 F 82-85 16-20 118-160/65-85 91-98 Nasal Cannula-Room Air 0.5-3 Intake and Output 03/06/22 03/07/22 03/07/22 19:59 03:59 11:59 Intake Total 1017 400 240 Output Total 225 450 Balance 792 -50 240 Weight 96 lb 6 oz Intake & Output: Intake & Output 03/06/22 03/07/22 03/07/22 19:59 03:59 11:59 Intake Total 1017 400 240 Output Total 225 450 Balance 792 -50 240 Weight 96 lb 6 oz Intake: IV 317 Sodium Chloride 0.9% 500 ml @ 317 60 mls/hr IV .[id number] ONE Rx#: [id number] Oral 700 400 240 Output: Urine Catheter Amount 225 Void Amount 450 Other: Meal Breakfast Percent of Meal Consumed 100% Feeding Ability Independent Urine Appearance Clear Clear Uretheral ([place]) Clear Urine Color Yellow Dark Yazmin Uretheral ([place]) Yellow Urine Odor Strong Strong Additional findings Additional findings: Bandages c/d/i nvi-distal OBJ DATA Labs CBC & Chem 7: 03/07/22 05:38 03/07/22 05:38 Labs: Abnormal Lab Results 03/07/22 03/07/22 03/07/22 05:38 05:38 05:38 WBC 14.7 H RBC 3.44 L Hgb 10.3 L Hct 31.0 L Neut % (Auto) Lymph % (Auto) Lymph # (Auto) [place] # (Auto) Seg Neutrophils % 81 H Lymphocytes % 12 L Immature Gran # Absolute Neutrophils PT Sodium 126 L Chloride 90 L Carbon Dioxide 31 H Anion Gap 5.0 L BUN 24 H Glucose Osmolality 273 L Calcium 8.0 L Lactate Dehydrogenase Total Protein Urine Appearance Urine Glucose (UA) Urine RBC Hyaline Casts Urine Mucus 03/06/22 03/06/22 03/06/22 06:08 06:06 06:03 WBC 18.8 H RBC Hgb 11.1 L Hct 33.8 L Neut % (Auto) 88.2 H Lymph % (Auto) 5.9 L Lymph # (Auto) 1.10 L [place] # (Auto) 0.97 H Seg Neutrophils % Lymphocytes % Immature Gran # 0.10 H Absolute Neutrophils 16.56 H PT 14.7 H Sodium 132 L Chloride Carbon Dioxide Anion Gap 6.0 L BUN Glucose 179 H Osmolality Calcium Lactate Dehydrogenase 242 H Total Protein 5.7 L Urine Appearance Urine Glucose (UA) Urine RBC Hyaline Casts Urine Mucus 03/06/22 01:43 WBC RBC Hgb Hct Neut % (Auto) Lymph % (Auto) Lymph # (Auto) [place] # (Auto) Seg Neutrophils % Lymphocytes % Immature Gran # Absolute Neutrophils PT Sodium Chloride Carbon Dioxide Anion Gap BUN Glucose Osmolality Calcium Lactate Dehydrogenase Total Protein Urine Appearance Hazy A Urine Glucose (UA) >=500 A Urine RBC 4 H Hyaline Casts 104 H Urine Mucus Mod A Meds: Medications Acetaminophen (Acetaminophen 325 Mg Tablet) 650 mg PO Q6HP PRN; Protocol PRN Reason: Per Pain Protocol/Fever > 101 Last Admin: 03/07/22 08:13 Dose: 650 mg Hydrocodone Bitart/Acetaminophen (Hydrocodone/Apap 5/325mg Tablet) 1 tab PO Q4HP PRN PRN Reason: PAIN LEVEL 3-6 Last Admin: 03/06/22 19:41 Dose: 1 tab Albuterol/Ipratropium (Ipratropium/Albuterol 3 Ml Ampul.Neb) 3 ml NEB Q4HP PRN PRN Reason: Shortness Of Breath Bisacodyl (Bisacodyl 10 Mg Supp.Rect) 10 mg [place] Q2-3DAYS PRN PRN Reason: Constipation Diphenhydramine HCl (Diphenhydramine 25 Mg Capsule) 25 mg PO HSP PRN PRN Reason: Insomnia Docusate Sodium (Docusate Sodium 100 Mg Capsule) 100 mg PO BID [facility] Last Admin: 03/07/22 08:13 Dose: 100 mg Enalaprilat (Enalaprilat 1.25 Mg/Ml Vial) 0 mg IV Q2HP PRN PRN Reason: Hypertension Heparin Sodium (Porcine) (Heparin 5,000 Unit/Ml Vial) 5,000 unit SQ Q12 [facility] Last Admin: 03/07/22 08:13 Dose: 5,000 unit Potassium Chloride 40 meq/ (Dextrose) 520 mls @ 130 mls/hr IV UD PRN PRN Reason: Potassium < 3 Magnesium Sulfate (Magnesium Sulfate) 2 gm in 50 mls @ 50 mls/hr IV UD PRN PRN Reason: Magnesium </= 1.6 Melatonin (Melatonin 3 Mg Tablet) 3 mg PO QHS [facility] Last Admin: 03/06/22 19:42 Dose: 3 mg Morphine Sulfate (Morphine 4 Mg/Ml Vial) 0 mg IV Q3HP PRN PRN Reason: Pain Ondansetron HCl (Ondansetron 4 Mg/2 Ml Vial) 4 mg IV Q4HP PRN PRN Reason: Nausea And Vomiting Polyethylene Glycol (Polyethylene Glycol 3350 17 Gm Packet) 17 gm PO DAILYP PRN PRN Reason: Constipation Potassium Chloride (Potassium Chloride 20 Meq Tablet) 40 meq PO UD PRN PRN Reason: Potssium is 3-3.5 Potassium Chloride (Potassium Chloride 20 Meq Tablet) 40 meq PO UD PRN PRN Reason: Potassium < 3 Senna (Sennosides 1 Tablet) 2 tab PO DAILYP PRN PRN Reason: Constipation Sodium Chloride (0.9 % Sodium Chloride 10 Ml Syringe) 10 ml IV Q8 [facility] Last Admin: 03/07/22 05:06 Dose: 10 ml A/P Narrative A/P Narrative: 2 days s/p L hip IM nail for IT fx Plan of Treatment: mobilize with PT Switch pain med to Tramadol from [place]. f/u at [facility] in 2 or 6 weeks. Pt does not wish to travel for 2 week appt. [place] out at 2 weeks with PCP or nursing facility. 50% weight bearing. Signing out Ortho service. Time Spent With Patient Time: Total time spent is greater than 50% in coordination of care (as documented) at patient's floor/unit and/or counseling patient:
[2022-03-07] MEDS: ONDANSETRON 4 MG/2 ML VIAL IV PRN (09:28)
--- NOTE | 2022-03-07 09:43 | EKG ---
[facility] Test Date: 2022-03-05 Pat Name: Isabela Cullen [facility] Room: 108 Gender: Female Banking Manager: : [id number] Requested By: Declan Huynh Order Number: [id number] Reading MD: Wan Terry Measurements Intervals [place] Rate: 86 P: 66 [place]: 145 QRS: 10 QRSD: 86 T: -28 QT: 415 QTc: 498 Interpretive Statements Sinus rhythm Ventricular bigeminy LVH with secondary repolarization abnormality Anterior Q waves, possibly due to LVH Electronically Signed On 03-07-2022 9:42:57 PST by Wan Terry /store/M0/[id number]
[2022-03-07] MEDS: traMADol 50 MG TABLET PO PRN ×3 (10:21→20:57)
--- NOTE | 2022-03-07 11:01 | Discharge Summary ---
Discharge Provider Provider IMPORTANT FOLLOW-UP INFORMATION FOR PCP: Patient information: Note initiated : 03/07/22 at 11:00 am Service Date, if different from initiated Date: [] Patient: Isabela Cullen 86 y/o F admitted on 03/05/22 for Left hip fracture. Chief Complaint: [] Date of admission: 03/05/22 16:00 Discharge date: 03/09/22 Primary care physician: Hortencia Mayo COURSE Hospital Course Hospital course: History of present illness: Ms. Cullen is a 86 year old F Presents to the outside facility for left hip pain after fall. Patient states she heard somebody at the door and when she got up to go get the door she tripped over her feet. [place] immediate pain and knew she was unable to get up. Work-up at the outside facility revealed a left hip fracture. Dr. Sarkar was contacted. Patient denies chest pain shortness of breath. 03/06 Status post ORIF. Patient feeling okay. No overnight or new complaints other than poor sleep. Leukocytosis likely reactive. Afebrile. Monitor. Mild hyponatremia monitor. 03/07 Patient comfortable this morning. No overnight events. Leukocytosis present but improving. no Bandemia. Sodium decreased. Awaiting urine studies. 03/08 No overnight event or new complaints. Patient stable for discharge. A: *Left hip fracture: s/p ORIF (03/05) *HTN: *COPD: based on history and imaging *Hyponatremia: *Anemia: *Acute hypoxic respiratory failure: 0-1L NC 2/2 likely atelectasis + bronchiectasis plus underlying copd P: -f/u with Dr. Sarkar Discharge diagnosis: Left hip fracture hypertension COPD hyponatremia anemia acute hypoxic respi Time Spent with Patient Time attestation: Total time spent providing and/or coordinating discharge services: Time spent: Greater than 30 minutes EXAM Constitutional Vitals: Temp Pulse Resp BP Pulse Ox O2 Del Method O2 Flow Rate 97.9 F 82 20 134/70 91 0.5 03/07/22 08:00 03/07/22 03:21 03/07/22 08:00 03/07/22 08:00 03/07/22 08:00 03/07/22 08:00 03/07/22 06:02 Discharge Data Data Completed and Pending Labs on day of discharge: Labs from last 24 hours 03/07/22 03/07/22 03/07/22 09:15 09:15 09:15 WBC RBC Hgb Hct MCV MCH MCHC RDW Plt Count MPV Seg Neutrophils % Band Neutrophils % Lymphocytes % Monocytes % (Manual) Platelet Estimate RBC Morphology Sodium Potassium Chloride Carbon Dioxide Anion Gap BUN Creatinine GFR Calculation Glucose Osmolality Uric Acid Calcium Urine Osmolality Pending Ur Random Creatinine Pending Ur Random Sodium Pending Urine Urea Nitrogen Pending 03/07/22 03/07/22 03/07/22 05:38 05:38 05:38 WBC 14.7 H RBC 3.44 L Hgb 10.3 L Hct 31.0 L MCV 90.1 MCH 29.9 MCHC 33.2 RDW 13.9 Plt Count 155 MPV 9.4 Seg Neutrophils % 81 H Band Neutrophils % 2 Lymphocytes % 12 L Monocytes % (Manual) 5 Platelet Estimate Normal RBC Morphology Normal Sodium 126 L Potassium 4.4 Chloride 90 L Carbon Dioxide 31 H Anion Gap 5.0 L BUN 24 H Creatinine 0.6 GFR Calculation 83 Glucose 91 Osmolality 273 L Uric Acid 3.4 Calcium 8.0 L Urine Osmolality Ur Random Creatinine Ur Random Sodium Urine Urea Nitrogen Discharge Plan Patient/Caregiver Discharge Instructions Activity: increase activity as tolerated Diet: Regular Diet Prescriptions: New hydrocodone-acetaminophen 5-325 mg Tablet 1 tab PO Q6H PRN (Reason: Pain Level 3-6) Qty: 20 0RF Continued cholecalciferol (vitamin D3) 25 mcg (1,000 unit) Tablet 25 mcg PO QDAY Follow Up Plan Patient Disposition: Xfer SNF Plan of Treatment: mobilize with PT Switch pain med to Tramadol from [place]. f/u at [facility] in 2 or 6 weeks. Pt does not wish to travel for 2 week appt. [place] out at 2 weeks with PCP or nursing facility. 50% weight bearing. Signing out Ortho service. Prognosis: Fair Rehab Potential: Fair I certify that the patient requires SNF services: Yes Overall status at discharge: patient is progressing back to baseline Discharge Orders: Discharge Order (Routine); Ordered 03/09/22 Ordered By: Declan Huynh [facility] VTE Deep Vein Thrombosis/Pulmonary Embolism Present on Admission: No
[2022-03-07 11:12] LABS: Osmolality,Urine 550 mOSM/kg (80-1000)
[2022-03-07 11:19] LABS: Sodium, Urine Random 11 mmol/L
[2022-03-07] MEDS: SODIUM CHLORIDE 1 GM TABLET PO SCH ×2 (15:00→20:57)
[2022-03-07] MEDS: MELATONIN 3 MG TABLET PO SCH (20:57)
[2022-03-08] MEDS: 0.9 % SODIUM CHLORIDE 10 ML SYRINGE IV SCH ×3 (05:53→20:38)
[2022-03-08 06:40] LABS: Basophils # (Auto) 0.06 K/mcL (0.00-0.30); Basophils % (Auto) 0.5 % (0.0-2.0); Eosinophils # (Auto) 0.23 K/mcL (0.00-0.70); Eosinophils % (Auto) 2.1 % (0.0-7.0); Hematocrit 28.1 % (34.1-44.9); Hemoglobin 9.2 g/dL (11.2-15.7); Lymphocytes # (Auto) 1.24 K/mcL (1.50-4.80); Lymphocytes % (Auto) 11.3 % (15.5-49.0); Mean Cell Volume 90.9 fL (80.0-100.0); Mean Corpuscular HGB Conc 32.7 g/dL (31.0-36.0); Mean Platelet Volume 9.5 fL (8.8-12.5); Monocytes # (Auto) 0.82 K/mcL (0.10-0.90); Monocytes % (Auto) 7.5 % (1.0-12.0); Platelet Count 137 K/mcL (140-440); RBC 3.09 M/mcL (3.59-5.38); Red Cell Distribution Width 13.9 % (11.5-14.5)
[2022-03-08 07:05] LABS: Blood Urea Nitrogen 16 mg/dL (8-23); Carbon Dioxide 30 mmol/L (22-30); Chloride 93 mmol/L (96-108); Glomerular Filtration Rate 95; Glucose 96 mg/dL (70-105)
[2022-03-08] MEDS: DOCUSATE SODIUM 100 MG CAPSULE PO SCH ×2 (08:34→20:37)
[2022-03-08] MEDS: SODIUM CHLORIDE 1 GM TABLET PO SCH (08:34)
[2022-03-08] MEDS: HEPARIN 5,000 UNIT/ML VIAL SQ SCH ×2 (08:34→20:37)
--- NOTE | 2022-03-08 08:58 | Operative Note ---
DATE OF OPERATION: 03/05/2022 PREOPERATIVE DIAGNOSIS: Left closed, comminuted intertrochanteric hip fracture. POSTOPERATIVE DIAGNOSIS: Left closed, comminuted intertrochanteric hip fracture. PROCEDURE PERFORMED: Open treatment and internal fixation of a left comminuted intertrochanteric hip fracture using a Synthes TFNA 125-degree by 13 mm intramedullary pura with a 95 mm lag screw and a 36 mm distal interlock screw. SURGEON: Ernesto Sarkar M.D. ORDERLY: Ray Mclaughlin PA-C. The PA's assistance was required for the safe and efficient completion of the entire case. This provider's expertise and technical skill were required throughout the case. The PA assisted with preoperative coordination, intraoperative retraction, wound closure, dressing and splint application, as well as postoperative documentation and care coordination. ANESTHESIA: Spinal. DRAINS: None. SPECIMENS: None. COMPLICATIONS: None. ESTIMATED BLOOD LOSS: 150 mL. POSTOPERATIVE CONDITION: Stable. INDICATIONS FOR SURGERY: This is an 86-year-old, relatively healthy female who sustained a standing level fall earlier today. She had severe pain and inability to bear weight. She was taken to the local ER and x-rays showed a comminuted intertrochanteric hip fracture. She was transferred down for definitive orthopedic treatment. FINDINGS AT SURGERY: Comminuted intertrochanteric hip fracture. Post-fixation showed hardware in satisfactory position and fracture anatomically aligned. PROCEDURE IN DETAIL: The patient had been seen preoperatively. Informed consent had been obtained after discussion of risks and benefits of surgery. Risks including, but not limited to, bleeding; infection; injury to nerves, blood vessels, other surrounding structures; anesthetic risks; nonunion or malunion of the fracture; failure of hardware fixation, this being significant given her profound osteopenia; and possibility of needing further surgery. She understood and wished to proceed. Correct operative site was marked and the patient received spinal anesthesia. She was then taken to the operating room and carefully positioned onto the fracture table. The left lower extremity was carefully placed into some traction with some internal rotation. Right lower extremity was flexed and padded out of the way. Fluoroscopy was brought in to verify reduction. We checked AP and lateral views and these were nearly anatomic. I then had them prep and drape the left hip and lower extremity in normal sterile fashion and a timeout was performed verifying patient name, operative site, and plan. Shower curtain drape with Ioban was placed. Incision was made proximal to the greater trochanter with a scalpel through skin and subcutaneous tissue. Hemostasis was obtained with Bovie cautery. We continued with Bovie through the IT band. Blunt finger dissection was used to dissect down onto the greater trochanter and then a guide pin was placed on the tip of the trochanter with fluoroscopic guidance. Once we liked our starting position, this was passed down the canal to about the level of the lesser trochanter. Lateral view was taken. Minor adjustment was made to have our trajectory be directly down the canal on both views, and then once we liked our pin position, opening reamer was used to open the canal. Due to her profound osteopenia and capacious canal, I chose a 13 x 125 as she had a significant varus neck angle. This was advanced down until the lag screw would be central in the neck and head. Sleeve was placed into the jig. Incision was made laterally and spread down to bone. The sleeve was then taken down to bone. We then drilled the guide pin up the femoral neck, checked AP and lateral views to verify we were central on both and then advanced the guide pin until we were within 5 mm of the articular surface on both views. A ruler was used to measure a 95 lag screw. We then used the reamer for 95 and then a 95 lag screw was opened. This was advanced up until we were approximately 1 cm short of the articular surface on AP and lateral views. We then advanced the locking screw from proximally. Once it locked, we back-turned a half a turn, and then I used the compression sleeve to get about half a turn of compression. We then removed the guidewire and sleeve from the lag screw. We placed the new sleeve in the distal part of the jig for our distal interlock. A stab incision was made where it contacted skin. Sleeves were pressed to bone and then we drilled bicortically through the jig. Depth gauge measured this at a 36 mm screw. We then advanced a 36 mm distal locking screw. Once this was completed, I took final fluoro images of AP proximal and distal as well as lateral, proximal and distal. Those images were saved. We irrigated with IrriSept copiously, after a minute irrigated with saline copiously, and then a #1 Vicryl was used to close our proximal IT band running stitch. A 2-0 Monocryl was used for subcutaneous skin for all of the incisions and then hunter for skin closure. Xeroform and a sterile dressing were applied. The patient was then carefully transferred onto a gurney and taken to recovery room in stable condition. [email or web address]:maureen Job ID: [id number] Doc ID: [id number] Ernesto Sarkar MD
--- NOTE | 2022-03-08 09:58 | Internal Med Progress Note ---
SUBJECTIVE Subjective Patient information: Note initiated : 03/08/22 at 9:56 am Service Date, if different from initiated Date: [] Patient: Isabela Cullen a 86 y/o F admitted on 03/05/22 for Left hip fracture. Chief Complaint: [] Principal diagnosis: L hip IT fx Interval history: History of present illness: Ms. Cullen is a 86 year old F Presents to the outside facility for left hip pain after fall. Patient states she heard somebody at the door and when she got up to go get the door she tripped over her feet. [place] immediate pain and knew she was unable to get up. Work-up at the outside facility revealed a left hip fracture. Dr. Sarkar was contacted. Patient denies chest pain shortness of breath. 03/06 Status post ORIF. Patient feeling okay. No overnight or new complaints other than poor sleep. Leukocytosis likely reactive. Afebrile. Monitor. Mild hyponatremia monitor. 03/07 Patient comfortable this morning. No overnight events. Leukocytosis present but improving. no Bandemia. Sodium decreased. Awaiting urine studies. 03/08 Patient slept well. Seems to be feeling better. Sodium stable. Leukocytosis resolved. On oxygen with sats 95 to 98% can probably be weaned down or off. Denies dyspnea. Review of Systems: denies headache/fever/chills/nausea/vomiting/chest or abdominal pain/diarrhea. Otherwise see above. Constitutional Vitals: Vital Signs Temp Pulse Resp BP Pulse Ox O2 Del Method O2 Flow Rate 97.5 F 82 18 133/76 95 2 03/08/22 07:25 03/08/22 07:25 03/08/22 07:25 03/08/22 07:25 03/08/22 07:40 03/08/22 07:40 03/08/22 07:40 Period Temp Pulse Resp BP Sys/Contreras Pulse Ox O2 Del Method O2 Flow Rate Last 24 Hr 97.5 F-98.2 F 80-85 16-20 133-162/42-91 90-98 Nasal Cannula- Nasal Cannula 2-2 Intake and Output 03/07/22 03/08/22 03/08/22 19:59 03:59 11:59 Intake Total 720 450 480 Output Total 600 900 Balance 120 -450 480 Weight 46.295 kg Intake & Output: Intake & Output 03/07/22 03/08/22 03/08/22 19:59 03:59 11:59 Intake Total 720 450 480 Output Total 600 900 Balance 120 -450 480 Weight 46.295 kg Intake: Oral 720 450 480 Output: Void Amount 600 900 Other: Meal Dinner Breakfast Percent of Meal Consumed 50% 100% Feeding Ability Assist with Tray Set Up Independent Urine Appearance Clear Clear Urine Color Bright Yellow Yellow Urine Odor Normal Exam: General: Alert, Awake, No acute Distress Eyes/N/T: EOMI, Head/Neck: neck supple, CV: RRR, No murmurs, Pulm: mild rales b/l, no wheezing Abd: soft, nontender, +BS x4 Ext: no clubbing/cyanosis/edema Neuro: Alert, no focal deficits, moves all extremities, Skin: warm/dry OBJ DATA Labs CBC & Chem 7: 03/08/22 05:42 03/08/22 05:42 Labs: Abnormal Lab Results 03/08/22 03/08/22 03/07/22 05:42 05:42 05:38 WBC RBC 3.09 L Hgb 9.2 L Hct 28.1 L Plt Count 137 L Immature Gran % (Auto) 0.6 H Neut % (Auto) Lymph % (Auto) 11.3 L Lymph # (Auto) 1.24 L [place] # (Auto) Seg Neutrophils % Lymphocytes % Immature Gran # 0.07 H Absolute Neutrophils 8.55 H PT Sodium 127 L Chloride 93 L Carbon Dioxide Anion Gap 4.0 L BUN Creatinine 0.4 L Glucose Osmolality 273 L Calcium 8.0 L Lactate Dehydrogenase Total Protein Urine Appearance Urine Glucose (UA) Urine RBC Hyaline Casts Urine Mucus 03/07/22 03/07/22 03/06/22 05:38 05:38 06:08 WBC 14.7 H RBC 3.44 L Hgb 10.3 L Hct 31.0 L Plt Count Immature Gran % (Auto) Neut % (Auto) Lymph % (Auto) Lymph # (Auto) [place] # (Auto) Seg Neutrophils % 81 H Lymphocytes % 12 L Immature Gran # Absolute Neutrophils PT Sodium 126 L 132 L Chloride 90 L Carbon Dioxide 31 H Anion Gap 5.0 L 6.0 L BUN 24 H Creatinine Glucose 179 H Osmolality Calcium 8.0 L Lactate Dehydrogenase 242 H Total Protein 5.7 L Urine Appearance Urine Glucose (UA) Urine RBC Hyaline Casts Urine Mucus 03/06/22 03/06/22 03/06/22 06:06 06:03 01:43 WBC 18.8 H RBC Hgb 11.1 L Hct 33.8 L Plt Count Immature Gran % (Auto) Neut % (Auto) 88.2 H Lymph % (Auto) 5.9 L Lymph # (Auto) 1.10 L [place] # (Auto) 0.97 H Seg Neutrophils % Lymphocytes % Immature Gran # 0.10 H Absolute Neutrophils 16.56 H PT 14.7 H Sodium Chloride Carbon Dioxide Anion Gap BUN Creatinine Glucose Osmolality Calcium Lactate Dehydrogenase Total Protein Urine Appearance Hazy A Urine Glucose (UA) >=500 A Urine RBC 4 H Hyaline Casts 104 H Urine Mucus Mod A Meds: Medications Acetaminophen (Acetaminophen 325 Mg Tablet) 650 mg PO Q6HP PRN; Protocol PRN Reason: Per Pain Protocol/Fever > 101 Last Admin: 03/07/22 08:13 Dose: 650 mg Hydrocodone Bitart/Acetaminophen (Hydrocodone/Apap 5/325mg Tablet) 1 tab PO Q4HP PRN PRN Reason: PAIN LEVEL 3-6 Last Admin: 03/06/22 19:41 Dose: 1 tab Albuterol/Ipratropium (Ipratropium/Albuterol 3 Ml Ampul.Neb) 3 ml NEB Q4HP PRN PRN Reason: Shortness Of Breath Bisacodyl (Bisacodyl 10 Mg Supp.Rect) 10 mg [place] Q2-3DAYS PRN PRN Reason: Constipation Diphenhydramine HCl (Diphenhydramine 25 Mg Capsule) 25 mg PO HSP PRN PRN Reason: Insomnia Docusate Sodium (Docusate Sodium 100 Mg Capsule) 100 mg PO BID [facility] Last Admin: 03/08/22 08:34 Dose: 100 mg Enalaprilat (Enalaprilat 1.25 Mg/Ml Vial) 0 mg IV Q2HP PRN PRN Reason: Hypertension Heparin Sodium (Porcine) (Heparin 5,000 Unit/Ml Vial) 5,000 unit SQ Q12 [facility] Last Admin: 03/08/22 08:34 Dose: Not Given Potassium Chloride 40 meq/ (Dextrose) 520 mls @ 130 mls/hr IV UD PRN PRN Reason: Potassium < 3 Magnesium Sulfate (Magnesium Sulfate) 2 gm in 50 mls @ 50 mls/hr IV UD PRN PRN Reason: Magnesium </= 1.6 Melatonin (Melatonin 3 Mg Tablet) 3 mg PO QHS [facility] Last Admin: 03/07/22 20:57 Dose: 3 mg Morphine Sulfate (Morphine 4 Mg/Ml Vial) 0 mg IV Q3HP PRN PRN Reason: Pain Ondansetron HCl (Ondansetron 4 Mg/2 Ml Vial) 4 mg IV Q4HP PRN PRN Reason: Nausea And Vomiting Last Admin: 03/07/22 09:28 Dose: 4 mg Polyethylene Glycol (Polyethylene Glycol 3350 17 Gm Packet) 17 gm PO DAILYP PRN PRN Reason: Constipation Potassium Chloride (Potassium Chloride 20 Meq Tablet) 40 meq PO UD PRN PRN Reason: Potssium is 3-3.5 Potassium Chloride (Potassium Chloride 20 Meq Tablet) 40 meq PO UD PRN PRN Reason: Potassium < 3 Senna (Sennosides 1 Tablet) 2 tab PO DAILYP PRN PRN Reason: Constipation Last Admin: 03/08/22 03:35 Dose: 2 tab Sodium Chloride (0.9 % Sodium Chloride 10 Ml Syringe) 10 ml IV Q8 [facility] Last Admin: 03/08/22 05:53 Dose: 10 ml Tramadol HCl (Tramadol 50 Mg Tablet) 50 mg PO Q4-6HP PRN; Protocol PRN Reason: Pain Last Admin: 03/07/22 20:57 Dose: 50 mg A/P Narrative A/P Narrative: A: *Left hip fracture: s/p ORIF (03/05) *HTN: *COPD: based on history and imaging *Acute hypoxic respiratory failure: 0-1L NC 2/2 likely atelectasis + bronchiectasis plus underlying copd *leukocytosis: reactive, ua/cxr unremarkable, afebrile. resolved *Hyponatremia: stable *Anemia: P: -Dr. Sarkar for orthopedics -Pain control -PT/OT -f/u cbc/chem -IS/Acapella, wean off o2 -Continue home ARB -CM for placement -ppx: SCD and postop per Ortho heparin DNR Plan of Treatment: mobilize with PT Switch pain med to Tramadol from [place]. f/u at [facility] in 2 or 6 weeks. Pt does not wish to travel for 2 week appt. [place] out at 2 weeks with PCP or nursing facility. 50% weight bearing. Signing out Ortho service. Time Spent With Patient Time: Total time spent is greater than 50% in coordination of care (as documented) at patient's floor/unit and/or counseling patient: Total time spent with greater than 50% in coordination of care (as documented) at patient's floor/unit and/or counseling patient:: 25 - 35 minutes QUALITY VTE Deep Vein Thrombosis/Pulmonary Embolism Present on Admission: No
[2022-03-08] MEDS: HYDROcodone/APAP 5/325MG TABLET PO PRN ×2 (10:43→20:37)
[2022-03-08] MEDS: morphine 4 MG/ML VIAL IV PRN ×2 (10:44→10:45)
[2022-03-08] MEDS: ONDANSETRON 4 MG/2 ML VIAL IV PRN (10:51)
--- NOTE | 2022-03-08 11:03 | Operative Note ---
DATE OF OPERATION: 03/05/2022 PREOPERATIVE DIAGNOSIS: Left closed intertrochanteric hip fracture. POSTOPERATIVE DIAGNOSIS: Left closed intertrochanteric hip fracture. PROCEDURE PERFORMED: Left open treatment and internal fixation of left intertrochanteric hip fracture with a Synthes trochanteric femoral nail mid length, 125-degree neck angle with a 95 mm lag screw. SURGEON: Ernesto Sarkar M.D. [employer] E[employer]IC ATTACHER: Ray Mclaughlin PA-C. The PA's assistance was required for the safe and efficient completion of the entire case. This provider's expertise and technical skill were required throughout the case. The PA assisted with preoperative coordination, intraoperative retraction, wound closure, dressing and splint application, as well as postoperative documentation and care coordination. ANESTHESIA: Spinal. DRAINS: None. SPECIMENS: None. COMPLICATIONS: None. ESTIMATED BLOOD LOSS: 150 mL. POSTOPERATIVE CONDITION: Stable. INDICATIONS FOR SURGERY: This is an 86-year-old female who fell earlier today, had severe pain and inability to bear weight. She was taken to her local emergency department in [place]. X-rays were taken that showed an intertrochanteric hip fracture. FINDINGS AT SURGERY: Comminuted intertrochanteric hip fracture with a large lesser trochanter fragment extending almost into the subtrochanteric region. Post-fixation showed near anatomic alignment with hardware in excellent position. PROCEDURE IN DETAIL: The patient had been seen preoperatively and informed consent had been obtained after discussion of risks and benefits of surgery. Risks including, but not limited to, bleeding; infection; injury to nerves, blood vessels, other surrounding structures; anesthetic risks; nonunion or malunion of the fracture; failure of hardware fixation; DVT and pulmonary embolus risks; and the possibility of needing further surgeries. She understood these risks and wished to proceed. Correct operative site was marked and then patient received spinal anesthesia in preoperative holding. She was then taken to the operating room. She was then transferred onto the fracture table. The left lower extremity was placed in some traction with internal rotation. The right lower extremity was carefully padded and flexed out of the way. Fluoroscopy was brought in to verify reduction and there was excellent reduction seen on both views. The left hip and leg were then carefully prepped and draped in normal sterile fashion, and a timeout was performed verifying patient name, operative site, and plan. An incision was made in line with the femur just proximal to the trochanter with a scalpel through skin and subcutaneous tissue. Hemostasis was obtained with Bovie cautery. We continued then with the Bovie through the IT band. Blunt finger dissection was taken down on the tip of the trochanter and then a guide pin was placed on the tip of the trochanter under fluoroscopic guidance. I then advanced the guide pin down the proximal femur. We checked the lateral view to make sure our trajectory was good on that view and then the opening reamer was used through a tissue protector. Guide pin was removed. Based off of her relative varus neck angle, we chose a 125-degree angled Synthes TFNA. I also chose a mid length due to the medial fracture fragment extending a little more distal than normal. I chose a 13 diameter due to her relatively capacious canal. This was easily advanced down the femoral canal and then placed where the lag screw would be in best position. A stab incision was made laterally and we spread down to bone. Sleeve was advanced to bone and then the guide pin was advanced up the femoral neck to less than 1 cm from the articular surface on both AP and lateral views. Once we liked our pin position, depth gauge was used to choose a 95 mm lag screw. We used the step reamer to ream 90 mm. Lag screw was opened and then we advanced this up into the femoral head until we were less than a centimeter from the articular surface on both views, and we left the rotation, so the bevelled cut of the lag screw was flush with the bone. We then advanced the locking mechanism from the proximal nail with a screwdriver. We then back-turned a half turn and I used the compression device to give some mild compression on the lag screw. We then removed the sleeve and guide pin. The distal interlock sleeve was then passed through the jig. A stab incision was made in the skin and then we spread down to bone. This sleeve was placed onto the bone and then we drilled bicortically and then a distal interlocking screw was placed. Jig was removed. Final fluoro images were taken, AP and lateral views and then copiously irrigated. A #1 Vicryl was used to close the IT band, 2-0 Monocryl was used for subcutaneous, hunter for skin. Xeroform and sterile dressings were applied. The patient was then carefully transferred to the gurney and recovery room in stable condition. [id number] Job ID: [id number] Doc ID: [id number] Ernesto Sarkar MD
[2022-03-08] MEDS: MELATONIN 3 MG TABLET PO SCH (20:38)
[2022-03-09] MEDS: 0.9 % SODIUM CHLORIDE 10 ML SYRINGE IV SCH (06:09)
[2022-03-09] MEDS: HYDROcodone/APAP 5/325MG TABLET PO PRN (07:14)
[2022-03-09] MEDS: DOCUSATE SODIUM 100 MG CAPSULE PO SCH (07:16)
[2022-03-09] MEDS: HEPARIN 5,000 UNIT/ML VIAL SQ SCH (09:44)
== END 2022-03-09 10:20 | DRG 480 ==
LOC: MEDSUR 16:00
PROVIDERS: ADMIT Internal Medicine; ATTEND Internal Medicine